=== PATIENT | female | born 1945 | race Caucasian/White ===

== ENCOUNTER → 2017-07-08 | Day surgery (SDC) | payer MEDICARE ==
[~2017-07-08] MED LIST: ACETAMINOPHEN/HYDROcodone 325 MG/5 MG TAB ONE; BUPIVACAINE HCL PF 0.5% 10 ML VIAL ONE; FEXO180; ISOSULFAN BLUE 50 MG/5 ML VIAL SQ ONE; KETOROLAC TROMETHAMINE 30 MG/ML (IVP) VIAL IV PUSH ONE; LACTATED RINGER'S 1000 ML INJ 1,000 ML ONE; MIDAZOLAM HCL 2 MG/2 ML VIAL ONE; ONDANSETRON HCL 4 MG/2 ML VIAL IV PUSH ONE; PROPOFOL 200 MG/20 ML AMP IV ONE; SODIUM CHLORIDE 0.9% INJ 10 ML ONE; ceFAZolin 2 GM PREMIX 50 ML ONE
--- NOTE | 2017-07-08 15:59 | TN ---
cc: RACHEAL DUNN M.D. DATE OF SURGERY 07/08/2017 PRINCIPAL DIAGNOSIS Left breast cancer. PROCEDURE PERFORMED Left breast needle-localized lumpectomy, intraoperative radiation therapy, and left axillary sentinel lymph node biopsy. SURGEON Dr. Racheal Dunn ANESTHESIA General via LMA device. INDICATION The patient is a 71-year-old female with a recently diagnosed clinical stage I left breast cancer. She is interested in breast conservation with intraoperative radiation and now presents for the procedure. FINDINGS AT SURGERY The specimen ultrasound did demonstrate an intact wire and the biopsy clip and lesion were present in the excised tissue. Five sentinel lymph nodes were identified. #1 had a count of 4833 and was 1+ blue. #2 had a count of 2174 and was also 1+ blue. [place] lymph node #3 had a count of 171, sentinel node #4 had a count of 119, and sentinel lymph node #5 had a count of 52. These lymph nodes were not blue and touch prep was not performed. PROCEDURE PERFORMED After informed consent was obtained and site verification was performed, the patient was brought to the radiology suite where she underwent needle localization of her lower inner quadrant left biopsy site using ultrasound guidance. She also underwent gorge tumor radionuclide injection with a full scan and there was no radionuclide enhancement in the parasternal area. She was then brought to the major operating room where she underwent general anesthesia via LMA device. She was given a single dose of IV Ancef and sequential compression hose were placed. A radial incision was created at the 7 o'clock to include the skin overlying the wire after anesthetizing with 0.5% Marcaine plain. Further sharp dissection was performed until the wire entry point through the skin was identified and secured with a hemostat. The wire was cut off at the skin with pin cutters and a 2-0 silk transfixion suture was placed at the wire entry point into the breast tissue. Further sharp and electrocautery dissection was then performed circumferentially around the wire and the specimen was oriented with two sutures medially, one short suture superiorly, and skin anteriorly. Inspection of the specimen did demonstrate that the inferior margin appeared close and this was sharply re-excised with a stitch on the new margin and sent as a permanent specimen. The posterior margin was also sharply reexcised with a stitch on the new margin and this was sent separately as a permanent specimen. The lumpectomy tissue was sent to x-ray with the findings as noted and was then sent for permanent pathologic evaluation. Hemostasis was easily obtained with electrocautery. The cavity appeared to accommodate a 4 cm applicator and this was opened sterilely on the field. A 0 Prolene pursestring suture was placed in the subcutaneous tissue approximately 1 cm below the skin circumferentially. The applicator was placed into the lumpectomy cavity and the pursestring suture was tightened but not tied. Ultrasound demonstrated greater than 2 cm of skin to applicator distance superiorly, medially and laterally. There was 1.8 cm of distance, inferiorly between skin and applicator. The applicator was then removed and placed into a sterile drape and secured to the intra-beam device. The applicator and device were then delivered onto the field and placed in the lumpectomy cavity without difficulty and the pursestring suture was tied. Ultrasound was again performed and demonstrated 2 cm or more distant circumferentially between skin and applicator. Two moist laps were then placed around the applicator and two lead bonner were placed around the applicator and secured to each other. Treatment then commenced for 28 minutes with no complications. Following completion, the lead bonner and moist laps were removed and the pursestring suture was cut. The applicator and device were then delivered off the field. Good hemostasis was noted and the wound was closed using interrupted 3-0 Vicryl subcutaneous sutures and a 4-0 Monocryl subcuticular suture. Attention was then turned to the left axilla where an incision was anesthetized at the inferior aspect of the left axillary hairline. Both sharp and electrocautery dissection were performed until the level I axilla was identified and the clavipectoral fascia was divided. Multiple mid level I lymph nodes were identified and each was circumferentially dissected free from surrounding structures using the harmonic scalpel with the counts as noted. A total of five sentinel nodes were removed and sent for pathologic evaluation. Touch prep was not performed. Good hemostasis was noted in the axilla and this wound was also closed using interrupted 3-0 Vicryl subcutaneous sutures and a 4-0 Monocryl subcuticular suture. The axillary vein, medial pectoral nerve, long thoracic and thoracodorsal neurovascular bundles were all identified and remained intact throughout the dissection. All sponge and needle counts were correct at the conclusion of the case and sterile dressings were applied to both wounds. The patient tolerated the procedure well and was extubated in the operating room and brought to the recovery room in good condition. MD BEAU Cespedes/MILENA /3:09 PM /3:33 PM
== END | disposition home or self-care (01) ==
LOC: ESDC 08:24
PROVIDERS: ATTEND Surgery
DX: C50.312 Malignant neoplasm of lower-inner quadrant of left female breast (principal)
CPT/HCPCS: 00400; 01610; 19294; 19301; 38525; 38792; 77290; 77300; 77334; 77370; 77424; 88305; 88307; J0690; J1885; J2250; J2405; J3010; J7120; Q9968; 77469